=== PATIENT | male | born 1950 | race Caucasian/White ===

== ENCOUNTER → 2017-05-23 | Outpatient (CLI) | payer BC ==
--- NOTE | 2017-05-23 15:15 | KCIC ---
Examination: MRI of the left knee without contrast HISTORY: History of twisting injury of the left knee, pain COMPARISON: None available TECHNIQUE: Multiplanar multisequence MR imaging of the left knee was performed without contrast FINDINGS: The anterior cruciate ligament, posterior cruciate ligament are intact. There is blunting of the junction of the body and posterior horn of the medial meniscus with extension into the posterior horn of the medial meniscus likely tear.The lateral meniscus is intact. The medial collateral ligament is intact. The lateral collateral ligamentous complex including the fibular collateral ligament, biceps femoris tendon, popliteus tendon appear intact. Small knee joint effusion. The extensor mechanism is intact. The medial, lateral retinaculum are intact. Bipartite patella identified. Minimal fraying of the cartilage identified in the weightbearing portion of the medial, lateral compartments. The medial retinaculum, lateral retinaculum appear intact. IMPRESSION: 1. Tear of the the medial meniscus as described. 2. Small knee joint effusion with mild tricompartmental degenerative changes. 3. Bipartite patella. Electronically signed by: Alberto Day MD (05/23/2017 3:12 PM) [id number]
== END | disposition home or self-care (01) ==
LOC: KCIC MRI 13:04
PROVIDERS: ATTEND Physician Assistant
DX: Q74.1 Congenital malformation of knee (principal)
CPT/HCPCS: 73721